=== PATIENT | male | born 2005 | race Caucasian/White ===

== ENCOUNTER 2025-07-22 12:28 | Emergency (ER) | payer BC, SELFPAY ==
[2025-07-22 12:29] VITALS: BP 128/81; PULSE 70; RESP 15; TEMP 36.7; O2SAT 99
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
[2025-07-22] MEDS: Lidocaine 5% Patch 1 PATCH TP (12:49)
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
[2025-07-22 13:40] VITALS: BP 123/63; PULSE 71; RESP 16; O2SAT 99
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
[2025-07-22 14:45] VITALS: BP 122/80; PULSE 68; RESP 16; O2SAT 100
== END 2025-07-22 14:46 | disposition home or self-care (01) ==
PROVIDERS: Emergency Provider Emergency Medicine
DX: S29.8XXA Other specified injuries of thorax, initial encounter (principal); V18.0XXA Pedal cycle driver injured in noncollision transport accident in nontraffic accident, initial encounter
CPT/HCPCS: 99283 ×2; 71046; 71100